=== PATIENT | female | born 1950 | race African-American/Black ===

== ENCOUNTER 2019-05-16 13:40 | Inpatient (IN) | payer MEDICARE, MEDICAID ==
[~2019-05-16] VITALS: Ht 152.4 cm; Wt 113.0 kg
[2019-05-16] VITALS (34 sets, daily range): BP systolic 56–142; BP diastolic 39–78
[2019-05-16] MEDS ORDERED: VANCOMYCIN 1 G PREMIX 200 ML IV ONE (14:30)
[2019-05-16] MEDS ORDERED: SODIUM CHLORIDE 0.9% 1000ML BAG (SEPSIS BOLUS) IV ONE (14:30)
[2019-05-16] MEDS ORDERED: PIPERACILLIN/TAZ 3.375G PREMIX 50 ML IV ONE (14:30)
[2019-05-16 14:45] LABS: BG BASE EXCESS 0.7 mmol/L (-2.0-2.0); BG CARBOXYHEMOGLOBIN 0.3 % (0.5-1.5); BG DEOXYHEMOGLOBIN 0.6 % (0.0-5.0); BG HCO3 ACT 24.8 mmol/L (22.0-26.0); BG METHEMOGLOBIN 0.3 % (0.0-1.5); BG OXYGEN SATURATION 99.4 % (92.0-98.5); BG OXYHEMOGLOBIN 98.8 % (94.0-97.0); BG PCO2 36.8 mmHg (35.0-45.0); BG PH 7.446 (7.350-7.450); BG SAMPLE SITE RIGHT RADIAL; BG TIDAL VOLUME(mL) 500 mL; BG TOTAL HEMOGLOBIN 7.1 g/dL (12.0-18.0); BG VENT MODE VENT - A/C; BG VENT RATE 14 set
[2019-05-16 14:54] LABS: MEAN CORPUSCULAR HEMOGLOBIN 30.3 pg (28.0-32.0); MEAN CORPUSCULAR VOLUME 94.5 fL (81.0-99.0); MEAN PLATELET VOLUME 7.6 fl (7.4-10.4); PLATELET 279 x1000/uL (130-400); RED BLOOD CELL COUNT 2.27 mill/uL (4.2-5.4); RED CELL DISTRIBUTION WIDTH 16.2 % (11.6-14.6)
[2019-05-16 15:00] LABS: CHLORIDE 108 mEq/L (98-107)
[2019-05-16 15:01] LABS: INR 1.2; PARTIAL THROMBOPLASTIN TIME 28.6 sec (23.4-31.0); PROTHROMBIN TIME 11.9 sec (9.6-11.0)
[2019-05-16 15:21] LABS: HEMOGLOBIN. 6.9 g/dL (12.0-16.0)
[2019-05-16 15:22] LABS: HEMATOCRIT. 21.5 % (36.0-48.0)
[2019-05-16 15:25] LABS: CLARITY URINE CLOUDY (CLEAR); COLOR URINE YELLOW (YELLOW); KETONES URINE NEGATIVE (NEGATIVE); LEUKOCYTE ESTERASE URINE 2+ (NEGATIVE); NITRITE URINE NEGATIVE (NEGATIVE); OCCULT BLOOD URINE NEGATIVE (NEGATIVE); PROTEIN URINE 1+ (NEGATIVE); SPECIFIC GRAVITY URINE 1.016 (1.005-1.030)
[2019-05-16] MEDS ORDERED: NOREPINEPHRINE 4MG/250ML PMX 250 ML IV ONE ×2 (15:35→15:45)
[2019-05-16 16:28] LABS: PLATELET ESTIMATE NORMAL
[2019-05-16] MEDS ORDERED: DIPHENHYDRAMINE 50MG/ML VIAL IV PRN (16:30)
[2019-05-16] MEDS ORDERED: HYDROCODONE/ACETAMINOPHEN 5/325MG TABLET PO PRN (16:30)
[2019-05-16] MEDS ORDERED: DOCUSATE SODIUM 100MG CAPSULE PO PRN (16:30)
[2019-05-16] MEDS ORDERED: NA PHOS,M-B/NA PHOS,DI-BA ENEMA 118ML PR PRN (16:30)
[2019-05-16] MEDS ORDERED: MAGNESIUM/ALUMINUM HYDROXIDE/SIMETHICONE 30ML UDC PO PRN (16:30)
[2019-05-16] MEDS ORDERED: LORAZEPAM 0.5MG TABLET PO PRN (16:30)
[2019-05-16] MEDS ORDERED: GUAIFENESIN 200MG/10ML SUGAR FREE UDC PO PRN (16:30)
[2019-05-16] MEDS ORDERED: ACETAMINOPHEN 325MG TABLET PO PRN (16:30)
[2019-05-16] MEDS ORDERED: IPRATROPIUM/ALBUTEROL 0.5-3(2.5)MG/3ML NEB INH PRN (16:30)
[2019-05-16] MEDS ORDERED: ACETAMINOPHEN 650MG SUPP PR PRN (16:30)
[2019-05-16] MEDS ORDERED: ONDANSETRON HCL 4MG/2ML INJ IV PRN (16:30)
[2019-05-16] MEDS ORDERED: CLONIDINE 0.1MG TABLET PO PRN (16:30)
[2019-05-16] MEDS ORDERED: DEXTROSE 50% WATER 50ML SYRINGE IV PRN (16:30)
[2019-05-16] MEDS ORDERED: NOREPINEPHRINE 8 MG in DEXT 5% WATER 242 ML IV PRN (17:30)
[2019-05-16] MEDS: INSULIN LISPRO 100 UNITS/ML SUBCUT SCH ×2 (18:00→23:35)
[2019-05-16] MEDS: SODIUM CHLORIDE 0.45% 1,000 ML IV SCH ×2 (18:28→22:38)
[2019-05-16] MEDS: BLOOD SUGAR DIAGNOSTIC STRIP TEST SCH ×2 (18:29→23:35)
[2019-05-16] MEDS: PIPERACILLIN/TAZ 3.375G PREMIX 50 ML IV SCH (18:29)
[2019-05-16] MEDS: IPRATROPIUM/ALBUTEROL 0.5-3(2.5)MG/3ML NEB INH SCH (20:19)
[2019-05-16] MEDS: VANCOMYCIN 1250MG in DEXTROSE 5% WATER 250ML IV SCH (22:38)
[2019-05-16] MEDS: FAMOTIDINE 20MG/2ML VIAL IV SCH (22:55)
[2019-05-16] MEDS: ATORVASTATIN CALCIUM 10MG TABLET PO SCH (22:55)
[2019-05-16] MEDS: NOREPINEPHRINE 8 MG in DEXT 5% WATER 242 ML IV PRN (22:59)
[2019-05-17] VITALS (95 sets, daily range): BP systolic 78–142; BP diastolic 25–93
[2019-05-17] MEDS: PIPERACILLIN/TAZ 3.375G PREMIX 50 ML IV SCH ×3 (00:09→12:14)
[2019-05-17] MEDS ORDERED: NA P230E RC (00:37)
[2019-05-17] MEDS ORDERED: CRAN3875 PO (00:37)
[2019-05-17] MEDS ORDERED: VALP250C3 MT (00:37)
[2019-05-17] MEDS ORDERED: ALBU2.5V13 NEB (00:37)
[2019-05-17] MEDS ORDERED: BENZ100C86 MT (00:37)
[2019-05-17] MEDS ORDERED: HYDR-4001 MT (00:37)
[2019-05-17] MEDS ORDERED: MIDO2.5T MT (00:37)
[2019-05-17] MEDS ORDERED: ZINC220T MT (00:37)
[2019-05-17] MEDS ORDERED: LISI10TA5 MT (00:37)
[2019-05-17] MEDS ORDERED: AMIN30LI2 PO (00:37)
[2019-05-17] MEDS ORDERED: ACET-2178 MT (00:37)
[2019-05-17] MEDS ORDERED: ASPI-1393 MT (00:37)
[2019-05-17] MEDS ORDERED: MOM MT (00:37)
[2019-05-17] MEDS ORDERED: CLON0.2T MT (00:37)
[2019-05-17] MEDS ORDERED: LEVE500T19 MT (00:37)
[2019-05-17] MEDS ORDERED: ATOR-2 MT (00:37)
[2019-05-17] MEDS ORDERED: BISA10SU62 RC (00:37)
[2019-05-17] MEDS ORDERED: MULT-1146 MT (00:37)
[2019-05-17] MEDS ORDERED: ASCO500C15 MT (00:37)
[2019-05-17] MEDS ORDERED: GLUC1VIA6 IJ (00:37)
[2019-05-17] MEDS ORDERED: DOCU-138 MT (00:37)
[2019-05-17] MEDS ORDERED: [UNRECOGNIZED DRUG - CODE] TP (00:37)
[2019-05-17] MEDS ORDERED: FAMO20TA8 MT (00:37)
[2019-05-17] MEDS ORDERED: PREG100C MT (00:37)
[2019-05-17] MEDS ORDERED: FERR324T4 PO (00:37)
[2019-05-17 02:12] LABS: HEMATOCRIT 25.4 % (36.0-48.0); HEMOGLOBIN 8.3 g/dL (12.0-16.0)
[2019-05-17] MEDS: IPRATROPIUM/ALBUTEROL 0.5-3(2.5)MG/3ML NEB INH SCH ×4 (02:21→20:11)
[2019-05-17 02:47] LABS: INR 1.1; PROTHROMBIN TIME 11.8 sec (9.6-11.0)
[2019-05-17 04:21] LABS: CREATINE KINASE 106 IU/L (26-192)
[2019-05-17 04:47] LABS: CREATINE KINASE MB FRACTION 2.1 ng/mL (0.5-3.6)
[2019-05-17] MEDS: INSULIN LISPRO 100 UNITS/ML SUBCUT SCH ×4 (05:38→23:37)
[2019-05-17] MEDS: BLOOD SUGAR DIAGNOSTIC STRIP TEST SCH ×4 (05:38→23:37)
[2019-05-17 08:10] LABS: BG BASE EXCESS -0.1 mmol/L (-2.0-2.0); BG CARBOXYHEMOGLOBIN 0.3 % (0.5-1.5); BG DEOXYHEMOGLOBIN 1.5 % (0.0-5.0); BG FRACTION INSPIRED OXYGEN 40; BG HCO3 ACT 24.8 mmol/L (22.0-26.0); BG METHEMOGLOBIN 0.1 % (0.0-1.5); BG OXYGEN SATURATION 98.5 % (92.0-98.5); BG OXYHEMOGLOBIN 98.1 % (94.0-97.0); BG PCO2 41.6 mmHg (35.0-45.0); BG PH 7.393 (7.350-7.450); BG PO2 146.5 mmHg (75.0-100.0); BG SAMPLE SITE RIGHT RADIAL; BG TIDAL VOLUME(mL) 450 mL; BG TOTAL HEMOGLOBIN 9.6 g/dL (12.0-18.0); BG VENT MODE VENT - A/C; BG VENT RATE 14 set
[2019-05-17] MEDS: FAMOTIDINE 20MG/2ML VIAL IV SCH ×2 (08:59→20:42)
[2019-05-17 09:39] LABS: HEMATOCRIT. 25.9 % (36.0-48.0); HEMOGLOBIN. 8.3 g/dL (12.0-16.0); MEAN CORPUSCULAR VOLUME 93.4 fL (81.0-99.0); MEAN PLATELET VOLUME 7.5 fl (7.4-10.4); PLATELET 279 x1000/uL (130-400); RED BLOOD CELL COUNT 2.77 mill/uL (4.2-5.4); RED CELL DISTRIBUTION WIDTH 15.7 % (11.6-14.6)
[2019-05-17 09:53] LABS: CHLORIDE 108 mEq/L (98-107)
[2019-05-17 10:00] LABS: LDL CHOLESTEROL 23 mg/dL (5-100)
[2019-05-17 10:01] LABS: CREATINE KINASE 79 IU/L (26-192)
[2019-05-17 10:02] LABS: CREATINE KINASE MB FRACTION 1.5 ng/mL (0.5-3.6)
[2019-05-17 10:03] LABS: HDL CHOLESTEROL 23 mg/dL (40-59)
[2019-05-17] MEDS: MIDODRINE HCL 5MG TABLET PO SCH ×3 (10:15→17:00)
[2019-05-17] MEDS ORDERED: DIATR MEGLU/DIATRIZOATE SOLN 30ML PO SCH (10:15)
[2019-05-17] MEDS: NOREPINEPHRINE 8 MG in DEXT 5% WATER 242 ML IV PRN (12:17)
[2019-05-17 12:46] LABS: PLATELET ESTIMATE NORMAL
[2019-05-17 14:09] LABS: *BARBITURATES SCREEN URINE NEGATIVE (NEGATIVE); CANNABINOID URINE SCREEN NEGATIVE (NEGATIVE)
[2019-05-17 14:10] LABS: *AMPHETAMINES SCREEN URINE NEGATIVE (NEGATIVE); *BENZODIAZEPINES SCREEN URINE NEGATIVE (NEGATIVE); *COCAINE SCREEN URINE NEGATIVE (NEGATIVE); METHADONE URINE SCREEN NEGATIVE (NEGATIVE); OPIATES URINE SCREEN PRESUMTIVE POSITIVE (NEGATIVE); PHENCYCLIDINE URINE SCREEN NEGATIVE (NEGATIVE)
[2019-05-17] MEDS: LEVETIRACETAM 500 MG in SODIUM CHLORIDE 0.9% 100 ML IV SCH ×2 (14:43→20:42)
[2019-05-17] MEDS: VANCOMYCIN 1250MG in DEXTROSE 5% WATER 250ML IV SCH (15:35)
[2019-05-17] MEDS: CLOPIDOGREL 75MG TABLET PO SCH (16:15)
[2019-05-17 16:41] LABS: ETHANOL BLOOD < 10 mg/dL
[2019-05-17 16:42] LABS: LDL CHOLESTEROL 18 mg/dL (5-100)
[2019-05-17 16:45] LABS: HDL CHOLESTEROL 20 mg/dL (40-59)
[2019-05-17 16:46] LABS: T4 FREE 0.87 ng/dL (0.76-1.46)
[2019-05-17 16:57] LABS: FOLIC ACID (FOLATE) SERUM >20 ng/mL ng/mL (>5.38)
[2019-05-17 17:08] LABS: VITAMIN B12 SERUM >2000 pg/mL pg/mL (211-911)
[2019-05-17] MEDS: MEROPENEM 1,000 MG in SODIUM CHLORIDE 0.9% 100 ML IV SCH (18:17)
[2019-05-17] MEDS: METRONIDAZOLE 500 MG PREMIX 100 ML IV SCH (20:42)
[2019-05-17] MEDS: ENOXAPARIN 30MG/0.3ML SYR SUBCUT SCH (20:43)
[2019-05-17] MEDS: ATORVASTATIN CALCIUM 10MG TABLET PO SCH (20:43)
[2019-05-18] VITALS (90 sets, daily range): BP systolic 89–160; BP diastolic 52–98
[2019-05-18] MEDS: MEROPENEM 1,000 MG in SODIUM CHLORIDE 0.9% 100 ML IV SCH ×3 (01:10→18:10)
[2019-05-18] MEDS: SODIUM CHLORIDE 0.45% 1,000 ML IV SCH (01:23)
[2019-05-18] MEDS: IPRATROPIUM/ALBUTEROL 0.5-3(2.5)MG/3ML NEB INH SCH ×4 (01:44→20:25)
[2019-05-18] MEDS: METRONIDAZOLE 500 MG PREMIX 100 ML IV SCH ×3 (03:14→19:11)
[2019-05-18 04:50] LABS: CHLORIDE 107 mEq/L (98-107)
[2019-05-18 04:51] LABS: HEMATOCRIT. 23.2 % (36.0-48.0); HEMOGLOBIN. 7.7 g/dL (12.0-16.0); MEAN CORPUSCULAR HEMOGLOBIN 30.8 pg (28.0-32.0); MEAN CORPUSCULAR VOLUME 93.2 fL (81.0-99.0); MEAN PLATELET VOLUME 7.9 fl (7.4-10.4); PLATELET 226 x1000/uL (130-400); RED BLOOD CELL COUNT 2.49 mill/uL (4.2-5.4); RED CELL DISTRIBUTION WIDTH 16.1 % (11.6-14.6)
[2019-05-18] MEDS: INSULIN LISPRO 100 UNITS/ML SUBCUT SCH ×3 (05:50→18:00)
[2019-05-18] MEDS: BLOOD SUGAR DIAGNOSTIC STRIP TEST SCH ×3 (05:50→18:00)
[2019-05-18] MEDS: FAMOTIDINE 20MG/2ML VIAL IV SCH ×2 (08:57→20:07)
[2019-05-18] MEDS: LEVETIRACETAM 500 MG in SODIUM CHLORIDE 0.9% 100 ML IV SCH ×2 (08:57→21:21)
[2019-05-18] MEDS: VANCOMYCIN 1250MG in DEXTROSE 5% WATER 250ML IV SCH (09:17)
[2019-05-18 10:09] LABS: PLATELET ESTIMATE NORMAL
[2019-05-18 10:55] LABS: TOTAL IRON BINDING CAPACITY 134 ug/dL (250-450)
[2019-05-18] MEDS: CLOPIDOGREL 75MG TABLET PO SCH (10:57)
[2019-05-18] MEDS: ENOXAPARIN 30MG/0.3ML SYR SUBCUT SCH (10:57)
[2019-05-18] MEDS: MIDODRINE HCL 5MG TABLET PO SCH ×3 (10:57→17:00)
[2019-05-18] MEDS ORDERED: POTASSIUM CHLORIDE INJ 40 MEQ in DEXT 5% WATER 250 ML IV SCH (11:00)
[2019-05-18] MEDS: ATORVASTATIN CALCIUM 10MG TABLET PO SCH (20:07)
[2019-05-18] MEDS: DEXT 5%/0.45% NACL 1000ML 1,000 ML IV SCH (20:07)
[2019-05-19] VITALS (14 sets, daily range): BP systolic 53–147; BP diastolic 32–89
[2019-05-19] MEDS: IPRATROPIUM/ALBUTEROL 0.5-3(2.5)MG/3ML NEB INH SCH ×4 (02:00→20:31)
[2019-05-19] MEDS ORDERED: VANCOMYCIN 1500MG in DEXTROSE 5% WATER 250ML IV SCH (02:00)
[2019-05-19] MEDS: MEROPENEM 1,000 MG in SODIUM CHLORIDE 0.9% 100 ML IV SCH ×3 (04:17→19:52)
[2019-05-19] MEDS: METRONIDAZOLE 500 MG PREMIX 100 ML IV SCH ×2 (04:18→11:06)
[2019-05-19] MEDS: BLOOD SUGAR DIAGNOSTIC STRIP TEST SCH ×4 (05:47→18:58)
[2019-05-19] MEDS: INSULIN LISPRO 100 UNITS/ML SUBCUT SCH ×4 (06:00→18:00)
[2019-05-19 06:48] LABS: HEMOGLOBIN. 7.6 g/dL (12.0-16.0); MEAN CORPUSCULAR HEMOGLOBIN 30.6 pg (28.0-32.0); MEAN CORPUSCULAR VOLUME 92.9 fL (81.0-99.0); MEAN PLATELET VOLUME 7.7 fl (7.4-10.4); PLATELET 217 x1000/uL (130-400); RED BLOOD CELL COUNT 2.48 mill/uL (4.2-5.4); RED CELL DISTRIBUTION WIDTH 15.8 % (11.6-14.6)
[2019-05-19 07:11] LABS: CHLORIDE 109 mEq/L (98-107)
[2019-05-19] MEDS: NYSTATIN POWDER 15GM TOP SCH ×3 (09:00→17:00)
[2019-05-19] MEDS: LEVETIRACETAM 500 MG in SODIUM CHLORIDE 0.9% 100 ML IV SCH ×2 (09:27→21:23)
[2019-05-19] MEDS: FAMOTIDINE 20MG/2ML VIAL IV SCH ×2 (09:28→21:22)
[2019-05-19] MEDS: MIDODRINE HCL 5MG TABLET PO SCH ×3 (09:28→18:58)
[2019-05-19 09:58] LABS: PLATELET ESTIMATE NORMAL
[2019-05-19] MEDS: DEXT 5%/0.45% NACL 1000ML 1,000 ML IV SCH (11:06)
[2019-05-19] MEDS ORDERED: DIATR MEGLU/DIATRIZOATE SOLN 30ML PO SCH (12:00)
[2019-05-19] MEDS ORDERED: POTASSIUM CHLORIDE INJ 40 MEQ in DEXT 5% WATER 250 ML IV NR (13:00)
[2019-05-19] MEDS: ATORVASTATIN CALCIUM 10MG TABLET PO SCH (21:34)
[2019-05-20] VITALS (11 sets, daily range): BP systolic 101–158; BP diastolic 50–91
[2019-05-20] MEDS ORDERED: VANCOMYCIN 1500MG in DEXTROSE 5% WATER 250ML IV SCH ×2
[2019-05-20] MEDS: BLOOD SUGAR DIAGNOSTIC STRIP TEST SCH ×4 (00:33→17:27)
[2019-05-20] MEDS: MEROPENEM 1,000 MG in SODIUM CHLORIDE 0.9% 100 ML IV SCH ×3 (02:00→17:44)
[2019-05-20] MEDS: IPRATROPIUM/ALBUTEROL 0.5-3(2.5)MG/3ML NEB INH SCH ×4 (02:12→20:11)
[2019-05-20] MEDS: DEXT 5%/0.45% NACL 1000ML 1,000 ML IV SCH ×2 (03:00→05:30)
[2019-05-20] MEDS: INSULIN LISPRO 100 UNITS/ML SUBCUT SCH ×4 (06:00→17:27)
[2019-05-20 07:26] LABS: HEMATOCRIT. 24.1 % (36.0-48.0); MEAN CORPUSCULAR HEMOGLOBIN 30.6 pg (28.0-32.0); MEAN CORPUSCULAR VOLUME 92.1 fL (81.0-99.0); MEAN PLATELET VOLUME 7.5 fl (7.4-10.4); PLATELET 224 x1000/uL (130-400); RED BLOOD CELL COUNT 2.62 mill/uL (4.2-5.4); RED CELL DISTRIBUTION WIDTH 15.7 % (11.6-14.6)
[2019-05-20 08:12] LABS: CHLORIDE 110 mEq/L (98-107)
[2019-05-20] MEDS: MIDODRINE HCL 5MG TABLET PO SCH ×3 (08:42→17:33)
[2019-05-20] MEDS: LEVETIRACETAM 500 MG in SODIUM CHLORIDE 0.9% 100 ML IV SCH ×2 (08:42→21:11)
[2019-05-20] MEDS: FAMOTIDINE 20MG/2ML VIAL IV SCH ×2 (08:43→21:12)
[2019-05-20] MEDS: NYSTATIN POWDER 15GM TOP SCH ×3 (09:49→17:33)
[2019-05-20 15:43] LABS: PLATELET ESTIMATE NORMAL
[2019-05-20] MEDS: ATORVASTATIN CALCIUM 10MG TABLET PO SCH (21:15)
[2019-05-21] VITALS (12 sets, daily range): BP systolic 102–157; BP diastolic 67–95
[2019-05-21] MEDS: IPRATROPIUM/ALBUTEROL 0.5-3(2.5)MG/3ML NEB INH SCH ×4 (01:58→19:58)
[2019-05-21] MEDS: MEROPENEM 1,000 MG in SODIUM CHLORIDE 0.9% 100 ML IV SCH ×3 (02:06→17:24)
[2019-05-21 09:41] LABS: HEMATOCRIT 24.4 % (36.0-48.0); HEMOGLOBIN 8.1 g/dL (12.0-16.0); MEAN CORPUSCULAR HEMOGLOBIN 30.9 pg (28.0-32.0); MEAN CORPUSCULAR VOLUME 93.3 fL (81.0-99.0); PLATELET 210 x1000/uL (130-400); RED BLOOD CELL COUNT 2.62 mill/uL (4.2-5.4); RED CELL DISTRIBUTION WIDTH 15.8 % (11.6-14.6)
[2019-05-21 09:45] LABS: CHLORIDE 111 mEq/L (98-107)
[2019-05-21] MEDS: MIDODRINE HCL 5MG TABLET PO SCH ×3 (10:10→17:00)
[2019-05-21] MEDS: FAMOTIDINE 20MG/2ML VIAL IV SCH ×2 (10:11→20:34)
[2019-05-21] MEDS: NYSTATIN POWDER 15GM TOP SCH ×3 (10:11→17:24)
[2019-05-21] MEDS: LEVETIRACETAM 500 MG in SODIUM CHLORIDE 0.9% 100 ML IV SCH ×2 (10:11→21:50)
[2019-05-21] MEDS ORDERED: POTASSIUM CHLORIDE INJ 40 MEQ in DEXT 5% WATER 250 ML IV NR (12:00)
[2019-05-21] MEDS: INSULIN LISPRO 100 UNITS/ML SUBCUT SCH ×4 (12:00→23:32)
[2019-05-21] MEDS: BLOOD SUGAR DIAGNOSTIC STRIP TEST SCH ×4 (12:45→23:32)
[2019-05-21] MEDS: DEXT 5%/0.45% NACL 1000ML 1,000 ML IV SCH (13:07)
[2019-05-21] MEDS: VANCOMYCIN 1500MG in DEXTROSE 5% WATER 250ML IV SCH (20:34)
[2019-05-22] VITALS (15 sets, daily range): BP systolic 107–161; BP diastolic 61–93
[2019-05-22] MEDS: MEROPENEM 1,000 MG in SODIUM CHLORIDE 0.9% 100 ML IV SCH ×3 (01:03→17:10)
[2019-05-22] MEDS: IPRATROPIUM/ALBUTEROL 0.5-3(2.5)MG/3ML NEB INH SCH ×4 (02:25→20:18)
[2019-05-22] MEDS: BLOOD SUGAR DIAGNOSTIC STRIP TEST SCH ×3 (05:05→18:00)
[2019-05-22] MEDS: INSULIN LISPRO 100 UNITS/ML SUBCUT SCH ×3 (06:00→18:00)
[2019-05-22] MEDS: LEVETIRACETAM 500 MG in SODIUM CHLORIDE 0.9% 100 ML IV SCH ×2 (08:54→20:38)
[2019-05-22] MEDS: FAMOTIDINE 20MG/2ML VIAL IV SCH ×2 (08:54→20:12)
[2019-05-22] MEDS: NYSTATIN POWDER 15GM TOP SCH ×3 (09:00→17:00)
[2019-05-22 09:03] LABS: HEMATOCRIT 23.2 % (36.0-48.0); HEMOGLOBIN 7.6 g/dL (12.0-16.0); MEAN CORPUSCULAR HEMOGLOBIN 30.7 pg (28.0-32.0); MEAN CORPUSCULAR VOLUME 93.7 fL (81.0-99.0); PLATELET 197 x1000/uL (130-400); RED BLOOD CELL COUNT 2.48 mill/uL (4.2-5.4); RED CELL DISTRIBUTION WIDTH 15.7 % (11.6-14.6)
[2019-05-22 09:07] LABS: CHLORIDE 111 mEq/L (98-107)
[2019-05-22] MEDS ORDERED: POTASSIUM CHLORIDE INJ 40 MEQ in DEXT 5% WATER 250 ML IV SCH (12:00)
[2019-05-22] MEDS: DEXT 5%/0.45% NACL 1000ML 1,000 ML IV SCH (22:51)
[2019-05-23] VITALS (25 sets, daily range): BP systolic 106–153; BP diastolic 64–92
[2019-05-23] MEDS: BLOOD SUGAR DIAGNOSTIC STRIP TEST SCH ×3 (00:47→12:04)
[2019-05-23] MEDS: IPRATROPIUM/ALBUTEROL 0.5-3(2.5)MG/3ML NEB INH SCH ×4 (02:05→19:55)
[2019-05-23] MEDS: MEROPENEM 1,000 MG in SODIUM CHLORIDE 0.9% 100 ML IV SCH ×3 (03:29→17:59)
[2019-05-23] MEDS: INSULIN LISPRO 100 UNITS/ML SUBCUT SCH ×3 (05:37→12:00)
[2019-05-23 07:08] LABS: HEMATOCRIT 22.8 % (36.0-48.0); HEMOGLOBIN 7.5 g/dL (12.0-16.0); MEAN CORPUSCULAR HEMOGLOBIN 30.9 pg (28.0-32.0); MEAN CORPUSCULAR VOLUME 93.2 fL (81.0-99.0); PLATELET 215 x1000/uL (130-400); RED BLOOD CELL COUNT 2.44 mill/uL (4.2-5.4); RED CELL DISTRIBUTION WIDTH 15.7 % (11.6-14.6)
[2019-05-23 07:20] LABS: CHLORIDE 112 mEq/L (98-107)
[2019-05-23] MEDS: FAMOTIDINE 20MG/2ML VIAL IV SCH ×2 (10:03→21:25)
[2019-05-23] MEDS: VANCOMYCIN 1500MG in DEXTROSE 5% WATER 250ML IV SCH (10:03)
[2019-05-23] MEDS: LEVETIRACETAM 500 MG in SODIUM CHLORIDE 0.9% 100 ML IV SCH ×2 (10:03→21:25)
[2019-05-23] MEDS: NYSTATIN POWDER 15GM TOP SCH ×3 (10:04→17:33)
[2019-05-23] MEDS ORDERED: POTASSIUM CHLORIDE INJ 40 MEQ in DEXT 5% WATER 250 ML IV SCH (14:00)
[2019-05-23] MEDS: DEXT 5%/0.45% NACL 1000ML 1,000 ML IV SCH (15:55)
[2019-05-24] VITALS (13 sets, daily range): BP systolic 113–157; BP diastolic 72–93
[2019-05-24] MEDS: BLOOD SUGAR DIAGNOSTIC STRIP TEST SCH ×6 (00:40→23:12)
[2019-05-24] MEDS: IPRATROPIUM/ALBUTEROL 0.5-3(2.5)MG/3ML NEB INH SCH ×4 (01:54→20:10)
[2019-05-24] MEDS: MEROPENEM 1,000 MG in SODIUM CHLORIDE 0.9% 100 ML IV SCH ×3 (02:29→17:28)
[2019-05-24] MEDS: INSULIN LISPRO 100 UNITS/ML SUBCUT SCH ×5 (06:00→23:12)
[2019-05-24 07:51] LABS: HEMATOCRIT 23.7 % (36.0-48.0); HEMOGLOBIN 7.8 g/dL (12.0-16.0); MEAN CORPUSCULAR HEMOGLOBIN 30.6 pg (28.0-32.0); MEAN CORPUSCULAR VOLUME 92.7 fL (81.0-99.0); PLATELET 230 x1000/uL (130-400); RED BLOOD CELL COUNT 2.55 mill/uL (4.2-5.4); RED CELL DISTRIBUTION WIDTH 15.6 % (11.6-14.6)
[2019-05-24 08:02] LABS: CHLORIDE 110 mEq/L (98-107)
[2019-05-24] MEDS: DEXT 5%/0.45% NACL 1000ML 1,000 ML IV SCH (08:20)
[2019-05-24] MEDS: LEVETIRACETAM 500 MG in SODIUM CHLORIDE 0.9% 100 ML IV SCH (09:00)
[2019-05-24] MEDS: NYSTATIN POWDER 15GM TOP SCH ×3 (09:00→17:28)
[2019-05-24] MEDS: FAMOTIDINE 20MG/2ML VIAL IV SCH ×2 (10:42→21:22)
[2019-05-24] MEDS ORDERED: POTASSIUM CHLORIDE INJ 40 MEQ in DEXT 5% WATER 250 ML IV NR (11:00)
[2019-05-24] MEDS ORDERED: DEXT 5%/0.45% NACL 1000ML 1,000 ML IV SCH (13:00)
[2019-05-24] MEDS ORDERED: TOTAL PARENTERAL NUTRITION 1,900 ML IV SCH (21:00)
[2019-05-24] MEDS: VANCOMYCIN 1500MG in DEXTROSE 5% WATER 250ML IV SCH (21:22)
[2019-05-25] VITALS (19 sets, daily range): BP systolic 137–165; BP diastolic 77–99
[2019-05-25] MEDS: LEVETIRACETAM 500 MG in SODIUM CHLORIDE 0.9% 100 ML IV SCH ×3 (01:09→21:04)
[2019-05-25] MEDS: IPRATROPIUM/ALBUTEROL 0.5-3(2.5)MG/3ML NEB INH SCH ×4 (02:14→20:31)
[2019-05-25] MEDS: MEROPENEM 1,000 MG in SODIUM CHLORIDE 0.9% 100 ML IV SCH ×3 (02:15→17:48)
[2019-05-25] MEDS: BLOOD SUGAR DIAGNOSTIC STRIP TEST SCH ×3 (05:48→17:49)
[2019-05-25] MEDS: INSULIN LISPRO 100 UNITS/ML SUBCUT SCH ×3 (05:49→17:48)
[2019-05-25 06:33] LABS: HEMATOCRIT 22.9 % (36.0-48.0); HEMOGLOBIN 7.6 g/dL (12.0-16.0); MEAN CORPUSCULAR HEMOGLOBIN 30.7 pg (28.0-32.0); MEAN CORPUSCULAR VOLUME 93.2 fL (81.0-99.0); PLATELET 223 x1000/uL (130-400); RED BLOOD CELL COUNT 2.46 mill/uL (4.2-5.4); RED CELL DISTRIBUTION WIDTH 15.6 % (11.6-14.6)
[2019-05-25 07:00] LABS: CHLORIDE 109 mEq/L (98-107)
[2019-05-25 07:19] LABS: PHOSPHORUS 1.7 mg/dL (2.5-4.9)
[2019-05-25] MEDS: FAMOTIDINE 20MG/2ML VIAL IV SCH ×2 (09:26→21:04)
[2019-05-25] MEDS: NYSTATIN POWDER 15GM TOP SCH ×3 (09:27→16:32)
[2019-05-25] MEDS ORDERED: POTASSIUM PHOS,M-BASIC-D-BASIC 30 MMOL in DEXT 5% WATER 500 ML IV SCH (10:00)
[2019-05-25] MEDS ORDERED: MAGNESIUM 2 G PREMIX 50 ML IV SCH (10:00)
[2019-05-25] MEDS: TOTAL PARENTERAL NUTRITION 1,900 ML IV SCH (21:08)
[2019-05-26] VITALS (9 sets, daily range): BP systolic 112–166; BP diastolic 66–100
[2019-05-26] MEDS: BLOOD SUGAR DIAGNOSTIC STRIP TEST SCH ×4 (00:37→17:34)
[2019-05-26] MEDS: INSULIN LISPRO 100 UNITS/ML SUBCUT SCH ×4 (00:38→17:53)
[2019-05-26] MEDS: MEROPENEM 1,000 MG in SODIUM CHLORIDE 0.9% 100 ML IV SCH ×3 (01:30→17:34)
[2019-05-26] MEDS: IPRATROPIUM/ALBUTEROL 0.5-3(2.5)MG/3ML NEB INH SCH ×5 (01:56→20:58)
[2019-05-26 06:34] LABS: BASOPHILS % 0.2 % (0.0-2.0); HEMATOCRIT. 28.7 % (36.0-48.0); HEMOGLOBIN. 9.6 g/dL (12.0-16.0); LYMPHOCYTES % 8.3 % (20.0-50.0); MEAN CORPUSCULAR HEMOGLOBIN 30.9 pg (28.0-32.0); MEAN CORPUSCULAR VOLUME 92.7 fL (81.0-99.0); MEAN PLATELET VOLUME 7.2 fl (7.4-10.4); MONOCYTES % 6.2 % (2.0-8.0); NEUTROPHILS % 84.3 % (40.0-76.0); PLATELET 227 x1000/uL (130-400); RED CELL DISTRIBUTION WIDTH 15.9 % (11.6-14.6)
[2019-05-26 07:20] LABS: CHLORIDE 105 mEq/L (98-107)
[2019-05-26 07:40] LABS: PHOSPHORUS 1.8 mg/dL (2.5-4.9)
[2019-05-26] MEDS: NYSTATIN POWDER 15GM TOP SCH ×3 (08:29→17:34)
[2019-05-26] MEDS: VANCOMYCIN 1500MG in DEXTROSE 5% WATER 250ML IV SCH (08:29)
[2019-05-26] MEDS: LEVETIRACETAM 500 MG in SODIUM CHLORIDE 0.9% 100 ML IV SCH ×2 (08:29→21:49)
[2019-05-26] MEDS: FAMOTIDINE 20MG/2ML VIAL IV SCH ×2 (08:29→21:50)
[2019-05-26] MEDS: HYDRALAZINE 20MG/ML VIAL IV PRN (11:18)
[2019-05-26] MEDS ORDERED: TOTAL PARENTERAL NUTRITION 1,900 ML IV SCH (21:00)
[2019-05-26] MEDS: TOTAL PARENTERAL NUTRITION 1,900 ML IV SCH (21:43)
[2019-05-26] MEDS: FAT EMULSIONS 500 ML IV SCH (21:49)
[2019-05-27] VITALS (31 sets, daily range): BP systolic 128–161; BP diastolic 62–103
[2019-05-27] MEDS: BLOOD SUGAR DIAGNOSTIC STRIP TEST SCH ×4 (00:45→17:33)
[2019-05-27] MEDS: INSULIN LISPRO 100 UNITS/ML SUBCUT SCH ×4 (01:09→18:09)
[2019-05-27] MEDS: IPRATROPIUM/ALBUTEROL 0.5-3(2.5)MG/3ML NEB INH SCH ×4 (01:57→19:55)
[2019-05-27] MEDS: MEROPENEM 1,000 MG in SODIUM CHLORIDE 0.9% 100 ML IV SCH ×3 (02:11→17:33)
[2019-05-27 07:40] LABS: HEMATOCRIT 23.6 % (36.0-48.0); HEMOGLOBIN 8.3 g/dL (12.0-16.0); MEAN CORPUSCULAR HEMOGLOBIN 32.7 pg (28.0-32.0); MEAN CORPUSCULAR VOLUME 92.9 fL (81.0-99.0); PLATELET 186 x1000/uL (130-400); RED BLOOD CELL COUNT 2.54 mill/uL (4.2-5.4); RED CELL DISTRIBUTION WIDTH 16.2 % (11.6-14.6)
[2019-05-27 08:18] LABS: CHLORIDE 108 mEq/L (98-107)
[2019-05-27] MEDS: NYSTATIN POWDER 15GM TOP SCH ×3 (09:21→17:34)
[2019-05-27] MEDS: FAMOTIDINE 20MG/2ML VIAL IV SCH ×2 (09:21→21:36)
[2019-05-27] MEDS: VANCOMYCIN 1250MG in DEXTROSE 5% WATER 250ML IV SCH (09:21)
[2019-05-27] MEDS: LEVETIRACETAM 500 MG in SODIUM CHLORIDE 0.9% 100 ML IV SCH ×2 (09:21→21:34)
[2019-05-27] MEDS ORDERED: TOTAL PARENTERAL NUTRITION 1,900 ML IV SCH (21:00)
[2019-05-28] VITALS (33 sets, daily range): BP systolic 109–176; BP diastolic 60–107
[2019-05-28] MEDS: BLOOD SUGAR DIAGNOSTIC STRIP TEST SCH ×4 (00:46→17:39)
[2019-05-28] MEDS: IPRATROPIUM/ALBUTEROL 0.5-3(2.5)MG/3ML NEB INH SCH ×4 (02:04→19:59)
[2019-05-28] MEDS: MEROPENEM 1,000 MG in SODIUM CHLORIDE 0.9% 100 ML IV SCH ×3 (02:52→17:44)
[2019-05-28] MEDS: INSULIN LISPRO 100 UNITS/ML SUBCUT SCH ×4 (06:00→18:00)
[2019-05-28] MEDS: NYSTATIN POWDER 15GM TOP SCH ×3 (08:19→17:44)
[2019-05-28] MEDS: FAMOTIDINE 20MG/2ML VIAL IV SCH ×2 (08:19→21:26)
[2019-05-28] MEDS: VANCOMYCIN 1250MG in DEXTROSE 5% WATER 250ML IV SCH (08:20)
[2019-05-28] MEDS: LEVETIRACETAM 500 MG in SODIUM CHLORIDE 0.9% 100 ML IV SCH ×2 (08:26→21:27)
[2019-05-28 09:26] LABS: HEMOGLOBIN 7.6 g/dL (12.0-16.0); MEAN CORPUSCULAR HEMOGLOBIN 31.1 pg (28.0-32.0); PLATELET 174 x1000/uL (130-400); RED BLOOD CELL COUNT 2.45 mill/uL (4.2-5.4); RED CELL DISTRIBUTION WIDTH 15.8 % (11.6-14.6)
[2019-05-28 09:35] LABS: CHLORIDE 109 mEq/L (98-107)
[2019-05-28 09:44] LABS: PHOSPHORUS 1.5 mg/dL (2.5-4.9)
[2019-05-28] MEDS: SODIUM HYPOCHLORITE 0.125% 473ML SOLUTION TOP SCH (17:44)
[2019-05-28] MEDS ORDERED: TOTAL PARENTERAL NUTRITION 1,900 ML IV SCH (21:00)
[2019-05-28] MEDS: FAT EMULSIONS 500 ML IV SCH (21:29)
[2019-05-29] VITALS (18 sets, daily range): BP systolic 104–150; BP diastolic 22–96
[2019-05-29] MEDS: IPRATROPIUM/ALBUTEROL 0.5-3(2.5)MG/3ML NEB INH SCH ×4 (02:14→20:14)
[2019-05-29] MEDS: MEROPENEM 1,000 MG in SODIUM CHLORIDE 0.9% 100 ML IV SCH ×3 (02:31→19:29)
[2019-05-29] MEDS: INSULIN LISPRO 100 UNITS/ML SUBCUT SCH ×4 (06:00→18:00)
[2019-05-29] MEDS: BLOOD SUGAR DIAGNOSTIC STRIP TEST SCH ×4 (06:00→18:00)
[2019-05-29 07:27] LABS: CHLORIDE 107 mEq/L (98-107)
[2019-05-29] MEDS: SODIUM HYPOCHLORITE 0.125% 473ML SOLUTION TOP SCH (08:05)
[2019-05-29] MEDS: NYSTATIN POWDER 15GM TOP SCH ×3 (08:05→19:29)
[2019-05-29] MEDS: FAMOTIDINE 20MG/2ML VIAL IV SCH ×2 (08:05→21:24)
[2019-05-29] MEDS: VANCOMYCIN 1250MG in DEXTROSE 5% WATER 250ML IV SCH ×2 (08:05→20:43)
[2019-05-29] MEDS: LEVETIRACETAM 500 MG in SODIUM CHLORIDE 0.9% 100 ML IV SCH ×2 (08:05→20:42)
[2019-05-29 09:25] LABS: HEMATOCRIT 22.2 % (36.0-48.0); MEAN CORPUSCULAR VOLUME 93.8 fL (81.0-99.0); PLATELET 169 x1000/uL (130-400); RED BLOOD CELL COUNT 2.37 mill/uL (4.2-5.4); RED CELL DISTRIBUTION WIDTH 16.3 % (11.6-14.6)
[2019-05-29 09:26] LABS: HEMOGLOBIN 7.5 g/dL (12.0-16.0)
[2019-05-29 09:27] LABS: MEAN CORPUSCULAR HEMOGLOBIN 31.6 pg (28.0-32.0)
[2019-05-29] MEDS ORDERED: TOTAL PARENTERAL NUTRITION 1,900 ML IV SCH (21:00)
[2019-05-30] VITALS (20 sets, daily range): BP systolic 118–159; BP diastolic 27–108
[2019-05-30] MEDS: MEROPENEM 1,000 MG in SODIUM CHLORIDE 0.9% 100 ML IV SCH ×3 (02:15→17:54)
[2019-05-30] MEDS: IPRATROPIUM/ALBUTEROL 0.5-3(2.5)MG/3ML NEB INH SCH ×3 (02:38→20:47)
[2019-05-30] MEDS: INSULIN LISPRO 100 UNITS/ML SUBCUT SCH ×4 (05:41→18:00)
[2019-05-30] MEDS: BLOOD SUGAR DIAGNOSTIC STRIP TEST SCH ×4 (05:41→17:53)
[2019-05-30 07:00] LABS: HEMATOCRIT 21.5 % (36.0-48.0); HEMOGLOBIN 7.3 g/dL (12.0-16.0); MEAN CORPUSCULAR HEMOGLOBIN 31.7 pg (28.0-32.0); MEAN CORPUSCULAR VOLUME 93.4 fL (81.0-99.0); PLATELET 183 x1000/uL (130-400); RED CELL DISTRIBUTION WIDTH 15.8 % (11.6-14.6)
[2019-05-30 07:16] LABS: CHLORIDE 108 mEq/L (98-107)
[2019-05-30] MEDS: LEVETIRACETAM 500 MG in SODIUM CHLORIDE 0.9% 100 ML IV SCH ×2 (09:06→23:17)
[2019-05-30] MEDS: FAMOTIDINE 20MG/2ML VIAL IV SCH ×2 (09:06→22:02)
[2019-05-30] MEDS: SODIUM HYPOCHLORITE 0.125% 473ML SOLUTION TOP SCH (09:06)
[2019-05-30] MEDS: NYSTATIN POWDER 15GM TOP SCH ×3 (09:07→17:54)
[2019-05-30] MEDS: VANCOMYCIN 1250MG in DEXTROSE 5% WATER 250ML IV SCH (11:17)
[2019-05-30] MEDS ORDERED: TOTAL PARENTERAL NUTRITION 1,900 ML IV SCH (21:00)
[2019-05-30] MEDS: FAT EMULSIONS 500 ML IV SCH (22:02)
[2019-05-31] VITALS (14 sets, daily range): BP systolic 113–173; BP diastolic 63–99
[2019-05-31] MEDS: IPRATROPIUM/ALBUTEROL 0.5-3(2.5)MG/3ML NEB INH SCH ×5 (00:32→20:25)
[2019-05-31] MEDS: BLOOD SUGAR DIAGNOSTIC STRIP TEST SCH ×4 (00:41→17:53)
[2019-05-31 00:52] LABS: HEMATOCRIT 24.5 % (36.0-48.0); HEMOGLOBIN 8.2 g/dL (12.0-16.0)
[2019-05-31] MEDS: MEROPENEM 1,000 MG in SODIUM CHLORIDE 0.9% 100 ML IV SCH ×3 (02:18→17:52)
[2019-05-31] MEDS: INSULIN LISPRO 100 UNITS/ML SUBCUT SCH ×4 (05:57→17:53)
[2019-05-31 08:02] LABS: HEMATOCRIT 25.3 % (36.0-48.0); MEAN CORPUSCULAR HEMOGLOBIN 32.9 pg (28.0-32.0); MEAN CORPUSCULAR VOLUME 92.4 fL (81.0-99.0); PLATELET 205 x1000/uL (130-400); RED BLOOD CELL COUNT 2.73 mill/uL (4.2-5.4)
[2019-05-31 08:33] LABS: CHLORIDE 106 mEq/L (98-107)
[2019-05-31] MEDS: FAMOTIDINE 20MG/2ML VIAL IV SCH ×2 (09:56→21:07)
[2019-05-31] MEDS: VANCOMYCIN 1250MG in DEXTROSE 5% WATER 250ML IV SCH (09:57)
[2019-05-31] MEDS: LEVETIRACETAM 500 MG in SODIUM CHLORIDE 0.9% 100 ML IV SCH ×2 (09:57→21:07)
[2019-05-31] MEDS: SODIUM HYPOCHLORITE 0.125% 473ML SOLUTION TOP SCH (09:57)
[2019-05-31] MEDS: NYSTATIN POWDER 15GM TOP SCH ×3 (10:11→16:41)
[2019-05-31] MEDS ORDERED: TOTAL PARENTERAL NUTRITION 1,900 ML IV SCH (21:00)
[2019-06-01] VITALS (20 sets, daily range): BP systolic 110–175; BP diastolic 67–125
[2019-06-01] MEDS: MEROPENEM 1,000 MG in SODIUM CHLORIDE 0.9% 100 ML IV SCH ×3 (02:04→17:57)
[2019-06-01] MEDS: HYDRALAZINE 20MG/ML VIAL IV PRN (02:04)
[2019-06-01] MEDS: IPRATROPIUM/ALBUTEROL 0.5-3(2.5)MG/3ML NEB INH SCH ×4 (02:10→20:55)
[2019-06-01] MEDS: INSULIN LISPRO 100 UNITS/ML SUBCUT SCH ×4 (06:00→17:51)
[2019-06-01] MEDS: BLOOD SUGAR DIAGNOSTIC STRIP TEST SCH ×4 (06:34→17:50)
[2019-06-01 09:03] LABS: CHLORIDE 106 mEq/L (98-107)
[2019-06-01 09:18] LABS: PHOSPHORUS 2.3 mg/dL (2.5-4.9)
[2019-06-01] MEDS: VANCOMYCIN 1250MG in DEXTROSE 5% WATER 250ML IV SCH (09:35)
[2019-06-01] MEDS: LEVETIRACETAM 500 MG in SODIUM CHLORIDE 0.9% 100 ML IV SCH ×2 (09:35→21:09)
[2019-06-01] MEDS: NYSTATIN POWDER 15GM TOP SCH ×3 (09:43→17:57)
[2019-06-01] MEDS: SODIUM HYPOCHLORITE 0.125% 473ML SOLUTION TOP SCH (09:44)
[2019-06-01] MEDS: FAMOTIDINE 20MG/2ML VIAL IV SCH ×2 (09:53→21:09)
[2019-06-01] MEDS ORDERED: TOTAL PARENTERAL NUTRITION 1,500 ML IV SCH (21:00)
[2019-06-02] VITALS (9 sets, daily range): BP systolic 107–149; BP diastolic 68–79
[2019-06-02] MEDS: IPRATROPIUM/ALBUTEROL 0.5-3(2.5)MG/3ML NEB INH SCH ×4 (02:15→20:08)
[2019-06-02] MEDS: MEROPENEM 1,000 MG in SODIUM CHLORIDE 0.9% 100 ML IV SCH ×3 (02:22→18:15)
[2019-06-02] MEDS: BLOOD SUGAR DIAGNOSTIC STRIP TEST SCH ×4 (05:51→18:11)
[2019-06-02] MEDS: INSULIN LISPRO 100 UNITS/ML SUBCUT SCH ×4 (05:51→18:00)
[2019-06-02] MEDS: NYSTATIN POWDER 15GM TOP SCH ×3 (09:00→18:33)
[2019-06-02] MEDS: VANCOMYCIN 1250MG in DEXTROSE 5% WATER 250ML IV SCH (09:45)
[2019-06-02] MEDS: FAMOTIDINE 20MG/2ML VIAL IV SCH ×2 (09:45→22:58)
[2019-06-02] MEDS: LEVETIRACETAM 500 MG in SODIUM CHLORIDE 0.9% 100 ML IV SCH ×2 (09:45→23:02)
[2019-06-02] MEDS: SODIUM HYPOCHLORITE 0.125% 473ML SOLUTION TOP SCH (09:46)
[2019-06-02 14:46] LABS: HEMATOCRIT. 24.1 % (36.0-48.0); MEAN CORPUSCULAR HEMOGLOBIN 31.6 pg (28.0-32.0); MEAN CORPUSCULAR VOLUME 94.8 fL (81.0-99.0); MEAN PLATELET VOLUME 8.6 fl (7.4-10.4); PLATELET 220 x1000/uL (130-400); RED BLOOD CELL COUNT 2.54 mill/uL (4.2-5.4); RED CELL DISTRIBUTION WIDTH 16.4 % (11.6-14.6)
[2019-06-02 18:05] LABS: PLATELET ESTIMATE NORMAL
[2019-06-02] MEDS ORDERED: FAT EMULSIONS 500 ML IV SCH (21:00)
[2019-06-02] MEDS ORDERED: TOTAL PARENTERAL NUTRITION 1,500 ML IV SCH (21:00)
[2019-06-03] MEDS: BLOOD SUGAR DIAGNOSTIC STRIP TEST SCH
[2019-06-03] MEDS: INSULIN LISPRO 100 UNITS/ML SUBCUT SCH
[2019-06-03] MEDS: IPRATROPIUM/ALBUTEROL 0.5-3(2.5)MG/3ML NEB INH SCH (02:28)
[2019-06-03] MEDS ORDERED: LIDOCAINE HCL/EPINEPHRINE 1%-EPI 1:100,000 30 ML VIAL INFIL ONE (08:45)
== END 2019-06-03 03:45 | disposition short-term general hospital (02) | DRG 870 ==
LOC: ER 13:40 → EDBEDREQ 15:44 → EDBEDREQTM 15:44 → ENRESERV 15:58 → MICUSO 16:45 → 5EST 05-18 23:42
PROVIDERS: ADMIT Internal Medicine; ATTEND Internal Medicine
PROC: 5A1955Z Respiratory Ventilation, Greater than 96 Consecutive Hours (ICD-10-PCS; principal; 2019-05-16)
PROC: 02HV33Z Insertion of Infusion Device into Superior Vena Cava, Percutaneous Approach (ICD-10-PCS; 2019-05-16)
PROC: B548ZZA Ultrasonography of Superior Vena Cava, Guidance (ICD-10-PCS; 2019-05-16)
PROC: 30233N1 Transfusion of Nonautologous Red Blood Cells into Peripheral Vein, Percutaneous Approach (ICD-10-PCS; 2019-05-16)
PROC: 0DP6XUZ Removal of Feeding Device from Stomach, External Approach (ICD-10-PCS; 2019-05-17)
PROC: 4A00X4Z Measurement of Central Nervous Electrical Activity, External Approach (ICD-10-PCS; 2019-05-20)
DX: A41.9 Sepsis, unspecified organism (principal); L89.154 Pressure ulcer of sacral region, stage 4; R65.21 Severe sepsis with septic shock; G92 Toxic encephalopathy; I63.9 Cerebral infarction, unspecified; J69.0 Pneumonitis due to inhalation of food and vomit; D68.59 Other primary thrombophilia; E87.2 Acidosis; L02.211 Cutaneous abscess of abdominal wall; Z99.11 Dependence on respirator [ventilator] status; J96.10 Chronic respiratory failure, unspecified whether with hypoxia or hypercapnia; N39.0 Urinary tract infection, site not specified; M86.8X8 Other osteomyelitis, other site; L03.311 Cellulitis of abdominal wall; K94.23 Gastrostomy malfunction; M46.28 Osteomyelitis of vertebra, sacral and sacrococcygeal region; Z68.42 Body mass index [BMI] 45.0-49.9, adult; D64.9 Anemia, unspecified; E11.65 Type 2 diabetes mellitus with hyperglycemia; I25.10 Atherosclerotic heart disease of native coronary artery without angina pectoris; E78.00 Pure hypercholesterolemia, unspecified; G40.909 Epilepsy, unspecified, not intractable, without status epilepticus; E78.5 Hyperlipidemia, unspecified; E87.6 Hypokalemia; E86.0 Dehydration; E83.39 Other disorders of phosphorus metabolism; E83.42 Hypomagnesemia; E66.9 Obesity, unspecified; E11.69 Type 2 diabetes mellitus with other specified complication; B96.20 Unspecified Escherichia coli [E. coli] as the cause of diseases classified elsewhere; Z16.12 Extended spectrum beta lactamase (ESBL) resistance; B95.1 Streptococcus, group B, as the cause of diseases classified elsewhere; B95.62 Methicillin resistant Staphylococcus aureus infection as the cause of diseases classified elsewhere; Y83.3 Surgical operation with formation of external stoma as the cause of abnormal reaction of the patient, or of later complication, without mention of misadventure at the time of the procedure; I10 Essential (primary) hypertension; Y92.89 Other specified places as the place of occurrence of the external cause; Z86.73 Personal history of transient ischemic attack (TIA), and cerebral infarction without residual deficits; Z93.0 Tracheostomy status; Z90.49 Acquired absence of other specified parts of digestive tract; Z79.899 Other long term (current) drug therapy; Z79.82 Long term (current) use of aspirin; Z22.322 Carrier or suspected carrier of Methicillin resistant Staphylococcus aureus
CPT/HCPCS: 36415; 36600; 70544; 70553; 71045; 74176; 76937; 80048; 80061; 80076; 80202; 80305; 80320; 82270; 82375; 82550; 82553; 82607; 82728; 82746; 82805; 82962; 83036; 83540; 83550; 83605; 83735; 83880; 84100; 84134; 84145; 84439; 84443; 84481; 84484; 85014; 85018; 85027; 85384; 85651; 86140; 86850; 86900; 86920; 87070; 87186; 93005; 93306; 93880; 93970; 94002; 94003; 94640; 96365; 96367; 96368; 97165; 99291; A6261; C1725; J0360; J1650; J1815; J1953; J2185; J2543; J3370; J3475; J3480; J3490; J7030; J7040; J7042; J7050; J7060; J7620; P9016; Q9963; G0480